=== PATIENT | female | born 1945 | race Caucasian/White ===

== ENCOUNTER 2017-09-26 09:57 | Outpatient (CLI) | payer MEDICARE ==
--- NOTE | 2017-09-26 12:44 | ULT ---
ULTRASOUND ABDOMEN: HISTORY: Abdominal pain. FINDINGS: The exam is limited due to overlying bowel gas with poor visualization of the spleen and pancreas. T he liver demonstrates homogeneous echotexture without focal mass or intrahepatic ductal dilatation. No gallstones, gallbladder wall thickening, or pericholecystic fluid are seen. The common duct measu res 6 cm in diameter. The kidneys are unremarkable. No free fluid is seen in the abdomen. Visualiz ed portions of aorta and IVC are unremarkable. IMPRESSION: Limited exam. No evidence of cholelithiasis. POS: [facility]
== END 2017-09-26 09:58 | disposition home or self-care (01) ==
LOC: ULT 09:57
PROVIDERS: ATTEND Internal Medicine
DX: R10.10 Upper abdominal pain, unspecified (principal)
CPT/HCPCS: 76700

== ENCOUNTER 2017-10-25 13:27 | Outpatient (CLI) | payer MEDICARE | END 2017-10-25 13:28 | disposition home or self-care (01) | LOC: BICULT 13:27 | PROVIDERS: ATTEND Internal Medicine | DX: I70.1 Atherosclerosis of renal artery (principal) | CPT/HCPCS: 76700; 76770 ==

== ENCOUNTER 2019-01-06 19:38 | Emergency (ER) | payer MEDICARE ==
[2019-01-06] MEDS ORDERED: hydrALAZINE 20 MG/ML VIAL ONE (19:54)
--- NOTE | 2019-01-06 20:38 | ULT ---
US Soft Tissue Other History: Pain Comparison: None. Findings: There is extensive cutaneous edema. There is a focal collection appears be a hematoma at th e forearm measuring 3.3 x 4.4 x 2 cm. No internal vascularity. Impression: Findings suggestive of a hematoma in the superficial soft tissues. Close follow-up clinic al examination recommended.
[2019-01-06] MEDS ORDERED: Ondansetron PF 4 MG/2 ML Vial ONE (21:25)
[2019-01-06] MEDS ORDERED: Bacitracin Zinc 1 Packet ONE (23:06)
== END 2019-01-06 23:36 | disposition home or self-care (01) ==
LOC: ERS 19:38
DX: S50.12XA Contusion of left forearm, initial encounter (principal); I10 Essential (primary) hypertension; W18.30XA Fall on same level, unspecified, initial encounter; Z86.73 Personal history of transient ischemic attack (TIA), and cerebral infarction without residual deficits; Z79.899 Other long term (current) drug therapy
CPT/HCPCS: 76999; 96374; 96375; J0360; J2405

== ENCOUNTER 2019-01-08 18:10 | Observation (INO) | payer MEDICARE ==
[2019-01-08 19:05] LABS: #Basophils 0.1 thou/uL (0.0-0.2); #Eosinphils 0.2 thou/uL (0.0-0.7); #Lymphocytes 1.3 thou/uL (1.20-3.40); #Monocytes 0.9 thou/uL (0.11-0.59); #Neutrophils 4.4 thou/uL (1.40-6.50); %Basophils 1.1 % (0.0-1.0); %Eosinophils 2.7 % (0.0-10.0); %Lymphocytes 19.2 % (21.0-51.0); %Monocytes 12.4 % (0.0-10.0); %Neutrophils 64.6 % (42.0-75.0); Hemoglobin 13.1 g/dL (12.0-16.0); Mean Corpuscular Hemoglobin 32.1 pg (27.0-31.0); Mean Corpuscular Volume 94.4 fL (78.0-98.0); Mean Platelet Volume 9.9 fL (7.4-10.4); Platelet Count 164 thou/uL (130-400); RBC Distribution Width 11.8 % (11.5-14.5); Red Blood Cell (RBC) Count 4.08 mill/uL (4.20-5.40); White Blood Cell (WBC) Count 6.9 thou/uL (4.8-10.8)
[2019-01-08] MEDS ORDERED: Acetaminophen 325 MG TAB ONE (19:09)
[2019-01-08 19:28] LABS: ALT (SGPT) 20 U/L (8-55); AST (SGOT) 18 U/L (5-34); Albumin 4.2 g/dL (3.4-4.8); Alkaline Phosphatase 95 U/L (40-150); Anion Gap 11 mmol/L (10-20); BUN (Urea Nitrogen) 9 mg/dL (9.8-20.1); Bilirubin, Total 1.5 mg/dL (0.2-1.2); Calc. Creatinine Clearance 0 mL/min (70-130); Calcium 9.6 mg/dL (7.8-10.44); Carbon Dioxide 27 mmol/L (23-31); Chloride 107 mmol/L (98-107); Estimated GFR-MDRD 56; Globulin 2.9 g/dL (2.4-3.5); Glucose 92 mg/dL (83-110); Potassium 3.8 mmol/L (3.5-5.1); Protein, Total 7.1 g/dL (6.0-8.3); Sodium 141 mmol/L (136-145)
[2019-01-08] MEDS ORDERED: Piperacillin/Tazobactam 4.5 GM, Admixture Fee 1 EACH in Sodium Chloride 0.9% 100 ML IVPB SCH (19:30)
[2019-01-08] MEDS ORDERED: Piperacillin/Tazobactam 4.5 GM in Sodium Chloride 0.9% 100 ML IVPB SCH (19:30)
--- NOTE | 2019-01-08 19:54 | RAD ---
Left elbow 4 views HISTORY: Elbow pain. Cellulitis. FINDINGS: Radiocapitellar alignment is maintained. Very mild osteophytosis. No acute fracture, disloc ation, or fluid distention of the joint capsule. No aggressive osseous erosions or radiopaque foreign bodies. Soft tissue swelling may be present along the posterior aspect of the proximal forearm. IMPRESSION: No acute osseous abnormalities are demonstrated.
--- NOTE | 2019-01-08 19:55 | RAD ---
Left forearm 2 views HISTORY: Cellulitis. Left arm pain. FINDINGS: Radius and ulna are intact. Soft tissue swelling along the posterior aspect of the proximal forearm. No underlying ossific destruction. No soft tissue gas or radiopaque foreign bodies are apparent. IMPRESSION: No significant abnormalities are demonstrated.
[2019-01-08 22:08] VITALS: BMI 27.7
[2019-01-08] MEDS ORDERED: Ondansetron PF 4 MG/2 ML Vial IVP PRN (22:13)
[2019-01-08] MEDS ORDERED: Ondansetron ODT 4 MG TAB SL PRN (22:13)
[2019-01-08] MEDS ORDERED: Acetaminophen 325 MG TAB PO PRN (22:13)
[2019-01-08] MEDS ORDERED: Sodium Chloride 0.9% 1,000 ML IV SCH (22:15)
[2019-01-09] MEDS ORDERED: Carvedilol 25 MG TAB PO SCH (00:30)
[2019-01-09] MEDS ORDERED: Senokot S 8.6-50 MG TAB PO PRN (00:57)
[2019-01-09] MEDS: Sodium Chloride 0.9% 1,000 ML IV SCH ×2 (01:28→21:35)
--- NOTE | 2019-01-09 02:14 | HP ---
CHIEF COMPLAINT: Left forearm pain and swelling. HISTORY OF PRESENT ILLNESS: Ms. Montanez is a pleasant 73-year-old woman, who presented to the ER today as instructed by her primary care physician due to increased swelling and pain involving the left forearm from her hand to the elbow. The patient had a recent fall on 01/06/2019 requiring sutures to the left forearm on the ulnar aspect. The patient had returned the same evening due to increased swelling and pain and noted to have a hematoma. She underwent a soft tissue ultrasound that showed a focal collection that appeared to be hematoma measuring 3.3 x 4.4 x 2 cm. She was discharged home and scheduled to follow up with her primary care physician this week. When evaluated, she was noted to have significant swelling and warmth to the left forearm, therefore her primary care physician advised she come into the ER for IV antibiotics given the concern for cellulitis. The patient states she had experienced severe pain, 9/10 in severity, when she return to the ER on Monday evening, but today her pain has been at 5/10 in severity. She has noted significant improvement following IV antibiotics given in the ER (vancomycin and Zosyn) and states the pain has improved. Her pain was extending down to the left 5th and 4th fingers and that has improved. Earlier today, she had weaken supervisor feed mill strength due to the amount of swelling involving her hand, which is now back to normal. She feels significantly better overall and is without any complaints at this present time. REVIEW OF SYSTEMS: She denies having any fevers, chills, or sweats. She denies any current nausea, but states she is easily nauseated at baseline. Denies any vomiting. Has been eating and drinking as normal. No abdominal pain or cramping. No chest pain, palpitations, or shortness of breath. She has not noted any purulent drainage from the wound. Sutures still in place. Denies any bleeding from the wound. Has not had any numbness or tingling in the hand or fingers. All other review of systems are negative. PAST MEDICAL HISTORY: 1. Hypertension. 2. Previous CVA. 3. Mini-stroke 6 weeks ago. 4. History of breast cancer. PAST SURGICAL HISTORY: 1. Appendectomy. 2. Hysterectomy. 3. Bilateral mastectomy. 4. Tonsillectomy. SOCIAL HISTORY: The patient reports drinking an occasional glass of wine with dinner and socially. Denies any tobacco use or illicit drug use. ALLERGIES: 1. DARVON. 2. DEMEROL. 3. IODINE. 4. MEPERIDINE. 5. PROPOXYPHENE. CURRENT MEDICATIONS: 1. Clonidine. 2. Carvedilol. 3. Irbesartan. 4. Multivitamin. 5. Tramadol. PHYSICAL EXAMINATION: GENERAL: The patient appears well-developed, well-nourished, and she is in no acute distress. VITAL SIGNS: Temperature 98.4, pulse 72, respirations 16, O2 saturation 98% on room air, and blood pressure 122/82. HEENT: Normocephalic and atraumatic. Pupils are equal, round, and reactive to light. Sclerae are without icterus. Oropharynx is clear. NECK: Supple. No lymphadenopathy. LUNGS: Clear to auscultation bilaterally without any wheezes, rales, or rhonchi. CARDIAC: Regular rate and rhythm. ABDOMEN: Soft, nontender, and nondistended. Normoactive bowel sounds present. EXTREMITIES: Left forearm notable for boggy swelling at the side of her wound with sutures in place that are dry without any active bleeding or discharge. Per patient, significant improvement with the amount of edema. Slight amount of erythema at the antecubital fossa, which the patient states was extending further prior to receiving antibiotics in the ER. The patient with normal supervisor feed mill strength bilaterally. Normal range of motion and sensation in the left hand. Pulses are equal bilaterally. No lower leg swelling or edema. NEUROLOGIC: Alert and oriented x3. SKIN: Without jaundice. Normal, warm, and dry. LABORATORY DATA: White blood count 6.9, hemoglobin 13.1, hematocrit 38.5, and platelets 164. Sodium 141, potassium 3.8, BUN 9, creatinine 0.97, GFR 56. Lactic acid 1.3, total bilirubin 1.5, calcium 9.6, AST 18, ALT 20, alkaline phosphatase 95, and albumin 4.2. IMAGING DATA: 1. Elbow x-ray, 01/08/2019. No acute osseous abnormalities demonstrated. 2. Forearm x-ray, 01/08/2019. No significant abnormalities demonstrated. Soft tissue swelling along the posterior aspect of the proximal forearm. No underlying ossific destruction, soft-tissue gas, or radiopaque foreign bodies present. IMPRESSION AND PLAN: Ms. Montanez is a pleasant 73-year-old woman, who is being admitted for management of the following. 1. Left upper extremity cellulitis. The patient was started on IV antibiotics with vancomycin and Zosyn, which the patient states has had immediate effect with significant improvement in swelling and warmth involving the left forearm. We will continue IV antibiotics. The patient remains afebrile with normal white cell count. 2. Hypertension. Resume home medications. Monitor blood pressure. 3. Hyperlipidemia. Resume home medications. 4. Gastrointestinal prophylaxis. 5. Deep venous thrombosis prophylaxis with mechanical SCDs. No pharmacal prophylaxis given hematoma and recent cerebrovascular accident 6 weeks ago. 6. Code status, full. The patient unable to appoint a surrogate decision maker at present. She would like to speak to someone in more detail about advanced directives. Consult has been placed to palliative care. The patient's case was discussed with Dr. Ty, who agrees with the plan of care as described above. Job ID: [id number]
[2019-01-09] MEDS ORDERED: Piperacillin/Tazobactam 3.375 GM in Sodium Chloride 0.9% 100 ML IVPB SCH (03:00)
[2019-01-09] MEDS: Piperacillin/Tazobactam 3.375 GM in Sodium Chloride 0.9% 100 ML IVPB SCH ×4 (03:07→21:34)
[2019-01-09 05:00] LABS: #Eosinphils 0.2 thou/uL (0.0-0.7); #Lymphocytes 1.3 thou/uL (1.20-3.40); #Monocytes 0.8 thou/uL (0.11-0.59); #Neutrophils 3.4 thou/uL (1.40-6.50); %Basophils 0.8 % (0.0-1.0); %Eosinophils 4.3 % (0.0-10.0); %Lymphocytes 21.8 % (21.0-51.0); %Monocytes 13.9 % (0.0-10.0); %Neutrophils 59.2 % (42.0-75.0); Mean Corpuscular HGB CONC 34.8 g/dL (32.0-36.0); Mean Corpuscular Hemoglobin 32.4 pg (27.0-31.0); Mean Corpuscular Volume 93.2 fL (78.0-98.0); Mean Platelet Volume 10.3 fL (7.4-10.4); Platelet Count 146 thou/uL (130-400); RBC Distribution Width 11.6 % (11.5-14.5); Red Blood Cell (RBC) Count 3.71 mill/uL (4.20-5.40); White Blood Cell (WBC) Count 5.7 thou/uL (4.8-10.8)
[2019-01-09 05:17] LABS: Anion Gap 12 mmol/L (10-20); BUN (Urea Nitrogen) 9 mg/dL (9.8-20.1); Bilirubin, Total 1.4 mg/dL (0.2-1.2); Calc. Creatinine Clearance 70 mL/min (70-130); Calcium 8.6 mg/dL (7.8-10.44); Carbon Dioxide 22 mmol/L (23-31); Chloride 110 mmol/L (98-107); Estimated GFR-MDRD 70; Glucose 102 mg/dL (83-110); Potassium 3.8 mmol/L (3.5-5.1); Sodium 140 mmol/L (136-145)
[2019-01-09] MEDS: Multivit, Therapeutic 1 TAB PO SCH (08:10)
[2019-01-09] MEDS: Famotidine/PF 20 mg/2ml Vial SLOW IVP SCH (08:10)
[2019-01-09] MEDS: Carvedilol 25 MG TAB PO SCH ×2 (08:10→21:34)
[2019-01-09] MEDS ORDERED: Prevnar 13-Val Conj/PF 0.5 ML SYRINGE IM ONE (09:00)
[2019-01-09] MEDS ORDERED: hydrALAZINE 20 MG/ML VIAL SLOW IVP PRN (09:24)
[2019-01-09] MEDS ORDERED: cloNIDine 0.1 MG TAB PO PRN (09:24)
[2019-01-09] MEDS ORDERED: Ondansetron PF 4 MG/2 ML Vial SLOW IVP PRN (16:15)
[2019-01-09] MEDS ORDERED: Vancomycin HCl 1 GM in Premix Bag 1 BAG IVPB SCH (17:00)
--- NOTE | 2019-01-09 17:01 | PDOC.PN ---
- Subjective Encounter Start Date: 01/09/19 Encounter Start Time: 16:59 Patient lying in bed, she reports feeling better today. Still with bruising and tenderness to her left arm, but states this is improved. She did develop nausea this afternoon that has improved with zofran. - Objective Resuscitation Status - Order Detail: 01/09/19 00:57 Resuscitation Status Routine Co-Sign Provider: Resuscitation Status: FULL: Full Resuscitation MAR Reviewed: Yes Vital Signs & Weight: Vital Signs (12 hours) Temp Pulse Resp BP Pulse Ox 01/09/19 06:57 98.3 F 68 19 178/79 H 97 Weight Admit Weight 156 lb 8 oz Weight 156 lb 8 oz I&O: 01/08/19 01/09/19 01/10/19 06:59 06:59 06:59 Intake Total 715 720 Balance 715 720 Result Diagrams: 01/09/19 04:28 01/09/19 04:28 Radiology Reviewed by me: Yes Phys Exam - Physical Examination Constitutional: NAD HEENT: oral pharynx no lesions Neck: full ROM Respiratory: no wheezing, clear to auscultation bilateral Cardiovascular: RRR, no significant murmur Gastrointestinal: soft, positive bowel sounds Diffuse bruising left arm noted, sutures in place Neurological: non-focal, moves all 4 limbs Lymphatic: no nodes Psychiatric: normal affect, A&O x 3 Skin: cap refill <2 seconds Deviation from normal: Bruising present as above Dx/Plan (1) Hematoma Code(s): T14.8XXA - OTHER INJURY OF UNSPECIFIED BODY REGION, INITIAL ENCOUNTER Status: Acute (2) Cellulitis Code(s): L03.90 - CELLULITIS, UNSPECIFIED Status: Acute (3) HTN (hypertension) Code(s): I10 - ESSENTIAL (PRIMARY) HYPERTENSION Status: Acute (4) HLD (hyperlipidemia) Code(s): E78.5 - HYPERLIPIDEMIA, UNSPECIFIED Status: Acute - Plan cont current plan of care, continue antibiotics * Continue abx for now, blood cultures negative * no WBC and afebrile * Swelling and redness improved * Continue home medications * Recheck ultrasound as previous recommended close follow up * Zofran as needed for new onset nausea
--- NOTE | 2019-01-09 17:54 | ULT ---
SOFT TISSUE ULTRASOUND OF THE FOREARM: 01/09/19 COMPARISON: 01/06/19. HISTORY: Palpable mass in the forearm. The patient had a laceration three days ago which they stitched up and patient had a bump that appeared three to four hours later. This bump is warm to the touch. TECHNIQUE: Multiplanar haskins scale and color Doppler images were obtained in a left forearm ultrasound. FINDINGS: There is a hypoechoic well circumscribed fluid collection measuring 4.2 x 1.4 cm in size. This is si milar in size compared to the prior exam. No internal flow is seen. IMPRESSION: Hypoechoic collection of the forearm may represent a hematoma. POS: [facility]
[2019-01-09] MEDS ORDERED: Rosuvastatin 10 MG TAB PO SCH (21:00)
[2019-01-10] MEDS: Piperacillin/Tazobactam 3.375 GM in Sodium Chloride 0.9% 100 ML IVPB SCH ×3 (03:21→15:36)
[2019-01-10 07:06] VITALS: BP 169/82; TEMP 98.2
[2019-01-10] MEDS: Multivit, Therapeutic 1 TAB PO SCH (08:21)
[2019-01-10] MEDS: Carvedilol 25 MG TAB PO SCH (08:21)
[2019-01-10] MEDS: Famotidine/PF 20 mg/2ml Vial SLOW IVP SCH (08:21)
--- NOTE | 2019-01-10 14:45 | DIS ---
DATE OF ADMISSION: 01/08/2019 DATE OF DISCHARGE: 01/10/2019 PRIMARY CARE PHYSICIAN: Dr. Hilton Jean Baptiste. DISCHARGE DISPOSITION: Home. PRIMARY DISCHARGE DIAGNOSIS: Hematoma and cellulitis of left upper extremity. SECONDARY DISCHARGE DIAGNOSES: Hypertension and dyslipidemia. PRIMARY PROCEDURE/OPERATION: None. RADIOLOGICAL INVESTIGATION: Forearm x-ray normal, elbow x-ray normal. Soft tissue ultrasound showed hematoma. SIGNIFICANT LABORATORY DATA: WBC 5.7, hemoglobin 12.0, and platelet 146. Sodium 140, potassium 3.8, chloride 110, carbon dioxide 22, BUN 9, creatinine 0.80, calcium 8.6, bilirubin 1.4, and liver enzymes normal. Blood culture negative. DISCHARGE MEDICATIONS: 1. Keflex 500 mg p.o. t.i.d. for 10 days. 2. Clonidine patch every week. 3. Coreg 50 mg b.i.d. 4. Irbesartan 150 mg p.o. b.i.d. 5. Multivitamin 1 tablet p.o. daily. 6. Crestor 10 mg p.o. at bedtime. CONTRAINDICATION: None. CODE STATUS: Full code. INPATIENT POPULATION HEALTH MANAGER: None. ALLERGY: Iodine, meperidine, and propoxyphene. DISCHARGE PLAN: Posthospital, the patient will follow up with primary care physician in 1 week. HOSPITAL COURSE: A 73-year-old female, who had episode of fall when she was coming down from stairs and she injured her left upper extremity around the forearm with the cut laceration and that is why she required to come to emergency room. She had suturing done and subsequently, she was discharged home. After that, the patient was also having increasing upper extremity swelling and tenderness and that is why she came back to emergency room for evaluation. In the emergency room, she was found with a hematoma at the suturing site. The patient was empirically treated for cellulitis while in the hospital. This patient had negative x-ray as well as soft tissue ultrasound, showed confirmed hematoma. This patient's clinical examination is also consistent with a hematoma over the injury site. We are changing antibiotic therapy to Keflex. While in the hospital, she was given vancomycin and Zosyn. Her culture remained negative. The patient's pain is well controlled. I have advised this patient to keep her left upper extremity elevated and follow up with primary care physician as well as ER for removal of suture. I have seen and examined the patient at bedside today. PHYSICAL EXAMINATION: VITAL SIGNS: Currently, temperature 98.3, pulse 77, respiratory rate 17, saturation 95% on room air, and blood pressure 169/82. Weight 156 pounds. GENERAL: The patient is currently alert and awake, no obvious acute distress. HEENT: Head, normocephalic and atraumatic. Eyes; pupils are round and reactive to light. Extraocular muscle intact. ENT: Oropharynx within normal limits. LUNGS: Clear without any rhonchi. CARDIAC: S1 and S2 regular without any murmur. ABDOMEN: Soft and benign. EXTREMITIES: No edema other than the mild hematoma on the left upper extremity with bruits. Good distal pulsation. NEUROLOGIC: Nonfocal examination. The patient is given Keflex on discharge and that is sent to her pharmacy. Rest of medications, she will continue as per previous. REVIEW OF SYSTEMS: All review of systems reviewed with her and negative. Job ID: [id number]
== END 2019-01-10 15:51 | disposition home or self-care (01) ==
LOC: ERS 18:10 → T4-B 21:46
PROVIDERS: ADMIT Hospitalist; ATTEND Hospitalist
DX: L76.32 Postprocedural hematoma of skin and subcutaneous tissue following other procedure (principal); L03.114 Cellulitis of left upper limb; I10 Essential (primary) hypertension; E78.5 Hyperlipidemia, unspecified; Z79.899 Other long term (current) drug therapy; Z88.5 Allergy status to narcotic agent; Z88.8 Allergy status to other drugs, medicaments and biological substances; Z91.041 Radiographic dye allergy status
CPT/HCPCS: 73080; 73090; 76999; 80048; 80053; 82247; 82248; 83605; 85025 ×2; 87040; 96361 ×2; 96366; 96375; 96376; 97139 ×2; G0378 ×2; 36415; 90471; 90670; 96365; 96367; G0009; J2405; J2543; J3370; J3490; S0028

== ENCOUNTER 2019-09-09 10:59 | Outpatient (CLI) | payer MEDICARE ==
--- NOTE | 2019-09-09 11:51 | RAD ---
LUMBAR SPINE 2 VIEWS: HISTORY: Followup compression fracture. FINDINGS: Less than 50% vertical height loss of L1 with possible mild retropulsion. Marked disk space loss a t L4-L5 with sclerosis. No old studies available. IMPRESSION: Less than 50% vertical height loss of L1. Marked disk space narrowing at L4-L5. Lumbar spondylolysi s. No significant malalignment. POS: [facility]
== END 2019-09-09 11:00 | disposition home or self-care (01) ==
LOC: TBSIIMAG 10:59
PROVIDERS: ATTEND Surgery
DX: M48.56XD Collapsed vertebra, not elsewhere classified, lumbar region, subsequent encounter for fracture with routine healing (principal); M47.816 Spondylosis without myelopathy or radiculopathy, lumbar region; M51.36 Other intervertebral disc degeneration, lumbar region
CPT/HCPCS: 72100

== ENCOUNTER 2025-04-29 12:42 | Outpatient (CLI) | payer MEDICARE, OTHER | END 2025-04-29 12:43 | disposition home or self-care (01) | LOC: SCSBT 12:42 | PROVIDERS: ATTEND Internal Medicine | DX: M81.0 Age-related osteoporosis without current pathological fracture (principal) | CPT/HCPCS: 77080 ==